=== PATIENT | male | born 1950 | race Caucasian/White ===

== ENCOUNTER → 2024-04-21 13:51 | Outpatient (REF) | payer OTHER, SELFPAY | LOC: HWRAD 13:51 | PROVIDERS: ATTENDING PHYSICIAN Family Medicine | DX: R10.30 Lower abdominal pain, unspecified (principal); N18.31 Chronic kidney disease, stage 3a | CPT/HCPCS: 74176 ==

== ENCOUNTER 2024-08-24 06:26 | Day surgery (SDC) | payer OTHER, SELFPAY ==
[2024-08-24 12:52] LABS: Glucose - Point of Care 95 mg/dl (70-99)
== END 2024-08-24 14:41 | disposition home or self-care (01) ==
LOC: GI 06:26
PROVIDERS: ATTENDING PHYSICIAN Internal Medicine; FAMILY PHYSICIAN Family Medicine
DX: D12.2 Benign neoplasm of ascending colon (principal); D12.3 Benign neoplasm of transverse colon; D12.4 Benign neoplasm of descending colon; D12.5 Benign neoplasm of sigmoid colon; K57.30 Diverticulosis of large intestine without perforation or abscess without bleeding; K64.9 Unspecified hemorrhoids; R19.5 Other fecal abnormalities
CPT/HCPCS: 45385; 45380; 88305; 82962